=== PATIENT | male | born 1995 | race Caucasian/White ===

== ENCOUNTER 2020-09-25 19:01 | Outpatient (REF) | payer BC, SELFPAY ==
[2020-09-28 19:33] LABS: COVID-19 RT-PCR UVMMC Result Positive (Negative)
== END 2020-09-25 19:21 ==
LOC: NCHCN 19:01
PROVIDERS: PCP Family Medicine; Visit Provider Family Medicine
DX: Z20.828 Contact with and (suspected) exposure to other viral communicable diseases (principal)
CPT/HCPCS: U0003